=== PATIENT | male | born 1950 | race African-American/Black ===

== ENCOUNTER → 2018-08-23 | Outpatient (CLI) | payer MEDICARE | END | disposition home or self-care (01) | LOC: RADMN 14:35 | PROVIDERS: ATTEND Internal Medicine | DX: J98.11 Atelectasis (principal) ==

== ENCOUNTER → 2018-10-08 | Outpatient (CLI) | payer MEDICARE, OTHER ==
[2018-10-08 12:56] LABS: ABG A-A DIFF O2 38.9 mmHg (10-20.0); ABG BASE EXCESS -1.1 mmol/L (-2.0-3.0); ABG CARBOXYHEMOGLOBIN 1.3 % (0.0-1.5); ABG HCO3 23.8 mmol/L (22.0-26.0); ABG METHEMOGLOBIN 0.2 % (0.0-1.5); ABG OXYGEN CONTENT 16.7 mL/dL (15.0-23.0); ABG OXYGEN SATURATION 93.5 % (95.0-98.0); ABG OXYHEMOGLOBIN 92.1 % (94.0-100.0); ABG PCO2 36 mmHg (35-45); ABG PH 7.424 (7.35-7.450); ABG TOTAL HEMOGLOBIN 12.9 G/dL (12.0-18.0); PO2, ARTERIAL BG 67.4 mmHg (79.0-87.0); SOURCE, BLOOD GAS ARTERIAL
[2018-10-08 12:57] LABS: SITE, BLOOD GAS RT RADIAL
== END | disposition home or self-care (01) ==
LOC: RESP 12:13
PROVIDERS: ATTEND Internal Medicine
DX: D53.9 Nutritional anemia, unspecified (principal); I10 Essential (primary) hypertension
CPT/HCPCS: 82805